=== PATIENT | female | born 1990 | race African-American/Black ===

== ENCOUNTER 2018-12-15 11:17 | Emergency (ER) | payer SELFPAY ==
[~2018-12-15] VITALS: Ht 175.3 cm; Wt 68.5 kg
[2018-12-15] MEDS ORDERED: BIRTH CONTROL PILL (11:28)
[2018-12-15] MEDS ORDERED: IBUPROFEN 600MG TABLET PO ONE (15:00)
[2018-12-15 15:11] VITALS: BP 125/70
== END 2018-12-15 15:37 | disposition home or self-care (01) ==
LOC: ER 11:43
DX: S29.012A Strain of muscle and tendon of back wall of thorax, initial encounter (principal); M54.2 Cervicalgia; V49.49XA Driver injured in collision with other motor vehicles in traffic accident, initial encounter; Y93.89 Activity, other specified; Y92.89 Other specified places as the place of occurrence of the external cause; Y99.8 Other external cause status
CPT/HCPCS: 81025; 99282